=== PATIENT | female | born 1985 | race Caucasian/White ===

== ENCOUNTER 2019-03-30 18:08 | Emergency (ER) | payer OTHER ==
[2019-03-30] MEDS ORDERED: LIDOCAINE 5% TOPICAL PATCH TP ONE (19:46)
[2019-03-30] MEDS ORDERED: ONDANSETRON ODT 4 MG TAB ONE (19:46)
[2019-03-30] MEDS ORDERED: ACETAMINOPHEN-CODEINE 300/30MG TAB ONE (19:47)
[2019-03-30] MEDS ORDERED: DIAZEPAM 5 MG TABLET ONE (19:47)
== END 2019-03-30 20:34 | disposition home or self-care (01) ==
LOC: EDH 18:08
DX: S30.0XXA Contusion of lower back and pelvis, initial encounter (principal); Z90.49 Acquired absence of other specified parts of digestive tract; Z98.890 Other specified postprocedural states; W18.39XA Other fall on same level, initial encounter; Y93.01 Activity, walking, marching and hiking; Y92.89 Other specified places as the place of occurrence of the external cause; Y99.8 Other external cause status
CPT/HCPCS: 72100; 72220